=== PATIENT | male | born 1995 ===

== ENCOUNTER → 2023-09-24 | Outpatient (CLI) | payer SELFPAY ==
[2023-09-24 16:12] LABS: BASOPHIL % 0.6 % (0.0-0.2); EOSINOPHIL # 0.1 10^3/uL (0.0-0.2); EOSINOPHIL % 1.8 % (0.0-5.0); HEMATOCRIT(ML) 48.9 % (37.0-53.0); HEMOGLOBIN 16.9 g/dL (13.9-16.3); LYMPHOCYTES # 2.11 10^3/uL1 (1.0-4.8); LYMPHOCYTES % 32.2 % (24.0-44.0); MEAN CORP HGB 32.1 pg (26-34); MEAN CORP HGB CONCENTRATION 34.6 g/dL (33-36.5); MONOCYTES # 0.7 10^3/uL (0.3-0.8); MONOCYTES % 10.4 % (5.0-12.0); NEUTROPHIL # 3.6 10^3/uL (1.8-7.7); NEUTROPHILS % 54.8 % (41.0-85.0); PLATELET COUNT 299 10^3/uL (150-400); RED BLOOD CELL 5.26 10^6/uL (4.50-5.90); RED CELL DISTRIBUTION WIDTH 11.9 % (11.5-14.5); WHITE BLOOD CELL 6.6 10^3/uL (4.5-11.0)
[2023-09-24 16:15] LABS: +ADD MANUAL DIFF(NO CHRG) NO
[2023-09-24 16:42] LABS: ALBUMIN(ML) 4.1 g/dL (3.4-5.0); ANION GAP 12.1; BUN/CREATININE RATIO 9.4 (10.0-20.0); CARBON DIOXIDE 29.1 mmol/L (20.0-32); CREATININE SERUM 1.17 mg/dL (0.59-1.40); EST GFR, NON-AA 73.2 (>/=60); POTASSIUM 4.2 mmol/L (3.6-5.2)
[2023-09-24 16:43] LABS: ALBUMIN/GLOBULIN RATIO 1.078; CALCIUM 9.4 mg/dL (8.4-10.5); LDL/HDL RATIO 1.5
== END | disposition home or self-care (01) ==
LOC: NPLAB 15:22
PROVIDERS: ATTEND Nurse Practitioner Family
DX: R53.83 Other fatigue (principal)
CPT/HCPCS: 36415; 80053; 80061; 82306; 84402; 84403; 85025